=== PATIENT | female | born 1940 | race Caucasian/White ===

== ENCOUNTER 2017-10-25 15:47 | Outpatient (CLI) | payer MEDICARE | END 2017-10-25 15:48 | disposition home or self-care (01) | LOC: BICMAMMO 15:47 | PROVIDERS: ATTEND Internal Medicine | DX: Z12.31 Encounter for screening mammogram for malignant neoplasm of breast (principal); Z80.3 Family history of malignant neoplasm of breast | CPT/HCPCS: 77063; 77067 ==

== ENCOUNTER 2018-08-30 11:40 | Outpatient (CLI) | payer MEDICARE ==
--- NOTE | 2018-08-30 16:51 | MRI ---
LUMBAR SPINE MRI NONCONTRAST 08/30/18 INDICATION: Lumbar radiculopathy, right sided sciatica, pain. FINDINGS: There is end plate degenerative marrow edema at the L3, L4 and L5 vertebra compatible with Modic type I degenerative signal alteration. No acute compression fracture is seen. No significant subluxation. There is multilevel bilateral mild to moderate degenerative facet hypertrophy. The conus medullaris terminates at the inferior L1 level and is normal in morphology. L5-S1: There is a mild disc osteophyte complex with a superimposed right paracentral disc protrusion with mild effacement of the ventral thecal sac. Mild left foraminal narrowing is present. No signific ant right foraminal stenosis. L4-5: Disc space narrowing and broad based disc osteophyte complex present, asymmetric to the left wi th crowding of the traversing left L5 nerve root and mild central canal stenosis. There is mild left neural foraminal narrowing. No significant right foraminal stenosis. L3-4: Moderate central canal stenosis present as result of broad based disc osteophyte. This does pro duce potential for impingement upon the traversing right L4 nerve root. There is mild bilateral neur al foraminal narrowing. L2-3: There is mild to moderate central canal stenosis with resultant broad based disc osteophyte. No high grade foraminal stenosis. L1-2: No significant central canal or neural foraminal stenosis. IMPRESSION: Multilevel degenerative change of the lumbar spine, as outlined above. POS: [facility]
== END 2018-08-30 11:41 | disposition home or self-care (01) ==
LOC: SCSMRI 11:40
PROVIDERS: ATTEND Orthopaedic Surgery
DX: M54.31 Sciatica, right side (principal); M47.26 Other spondylosis with radiculopathy, lumbar region
CPT/HCPCS: 72148